=== PATIENT | female | born 1950 | race Caucasian/White ===

== ENCOUNTER 2017-04-10 10:13 | Emergency (ER) | payer OTHER ==
[~2017-04-10] VITALS: Ht 149.9 cm; Wt 41.6 kg
[~2017-04-10 10:13] MED LIST: BENICAR; BYSTOLIC; CIPRO500 MG PO; SYNTHROID; ZOCOR10 MG PO; ZOFRAN4 MG PO
[2017-04-10 10:49] LABS: EOSINOPHIL (%) 0.2 % (0-5); HEMATOCRIT 38.5 % (36.0-46.0); IMMATURE GRANULOCYTE COUNT 0.1 K/uL; LYMPHOCYTE COUNT 1.3 K/uL (1.0-2.8); MCH 28.6 PG (29.0-34.0); MCHC 33.2 G/DL (30.0-36.0); MCV 85.9 FL (83-99); MEAN PLAT.VOLUME 10.7 uM^3 (9.5-12.4); MONOCYTE (%) 8.1 % (3-12); MONOCYTE COUNT 0.5 K/uL (0-0.8); NEUTROPHIL (%) 68.4 % (45-76); PLATELET COUNT 162 K/uL (156-360); RBC DIS.WIDTH-CV 11.9 % (11.8-14.6); RBC DIS.WIDTH-SD 37.2 % (39-53); RED BLOOD COUNT 4.48 M/uL (3.80-5.20); WHITE BLOOD COUNT 5.8 K/uL (4.1-10.2)
[2017-04-10 10:57] LABS: CHLORIDE 105 mEq/L (99-109)
[2017-04-10 10:58] LABS: SODIUM 142 mEq/L (136-147)
[2017-04-10 10:59] LABS: GLUCOSE 140 mg/dL (70-99)
[2017-04-10 11:01] LABS: ANION GAP 12 MEQ/L (2-14)
[2017-04-10 11:03] LABS: GFR ESTIMATE (CALCULATED) 59 mL/min/
[2017-04-10 11:04] LABS: UREA NITROGEN (BUN) 19 mg/dL (9-23)
[2017-04-10 11:11] LABS: TROP-I INTERPRETATION NEGATIVE; TROPONIN-I < 0.01 ng/mL (0.0-0.30)
[2017-04-10] MEDS ORDERED: ANTIVERT25 MG PO (13:50)
[2017-04-10 14:01] VITALS: BP 135/55
== END 2017-04-10 14:11 | disposition home or self-care (01) ==
LOC: EME 10:13
PROVIDERS: Emergency Medicine
DX: R42 Dizziness and giddiness (principal); E78.5 Hyperlipidemia, unspecified; I10 Essential (primary) hypertension; E03.9 Hypothyroidism, unspecified
CPT/HCPCS: 71010; 80048; 84484; 85025; 93005; 99281; 99285; J7030